=== PATIENT | male | born 1970 | race Caucasian/White ===

== ENCOUNTER 2017-02-25 18:10 | Emergency (ER) | payer OTHER ==
[~2017-02-25] VITALS: Ht 182.9 cm; Wt 68.2 kg
[2017-02-25 18:13] VITALS: BP 124/77; PULSE 63; RESP 14; TEMP 99.4; O2SAT 100
--- NOTE | 2017-02-25 18:30 | PD ---
Physical Exam Date Seen by Provider: Feb 25, 2017 Time Seen by Provider: 18:27 Narrative 46-year-old male presents to emergency department with sudden onset right sided elbow swelling that he woke up with this morning. He denies any significant pain. Patient states the only thing it differently yesterday was 3 sets of one arm to pull ups. No history of this in the past. It is not hot or red. No fever or chills. No known drug allergies. Data Data Last Documented VS Vital Signs Date Time Temp Pulse Resp B/P (MAP) Pulse Ox O2 Delivery O2 Flow Rate FiO2 02/25/17 18:13 99.4 63 14 124/77 (93) 100 MDM Medical Record Reviewed: Yes Supervised Visit with LEN: Yes Narrative Course Patient is medically stable. Vital signs are stable. X-ray of the right elbow is ordered. Patient is awaiting bed placement. Condition: Stable Noé Bob Feb 25, 2017 18:30
--- NOTE | 2017-02-25 18:52 | RADRPT ---
EXAM DATE/TIME: 02/25/2017 18:39 [place] COMPARISON: No previous studies available for comparison. INDICATIONS : Right elbow swelling, no known injury. MEDICAL HISTORY : None. SURGICAL HISTORY : None. ENCOUNTER: Initial ACUITY: 1 day PAIN SCORE: 0/10 LOCATION: Right elbow FINDINGS: Multiple view examination of the right elbow demonstrates no joint effusion, or fracture. The osseou s structures are in normal alignment. Bony mineralization is normal. Soft tissue swelling is noted o verlying the posterior elbow particularly overlying the olecranon. CONCLUSION: Soft tissue swelling overlying the olecranon. Otherwise negative. Lauro Snyder MD on February 25, 2017 at 18:48 Board Certified Radiologist. This report was verified electronically.
[2017-02-25] MEDS ORDERED: INDO50CA PO (19:38)
--- NOTE | 2017-02-25 19:38 | PD ---
HPI Chief Complaint: Musculoskeletal Complaint Time Seen by Provider: 19:31 Travel History International Travel<30 days: No Contact w/Intl Traveler<30days: No Traveled to known affect area: No History of Present Illness HPI Patient is a 46-year-old male presenting to emergency for evaluation of right elbow edema. Patient denies any injury or trauma, he denies any bites or stings. He further denies any fever or chills. Patient states he woke up like that this morning. He does report doing one arm pull ups yesterday with that arm. He denies a history of the same. He further denies any IV drug use. [facility] Past Medical History Medical History: Denies Significant Hx Tetanus Vaccination: < 5 Years Influenza Vaccination: No Past Surgical History Other Surgery: Yes (VASECTOMEY) Social History Alcohol Use: Yes (WEEKLY) Tobacco Use: No Substance Use: No Allergies-Medications (Allergen,Severity, Reaction): Coded Allergies: No Known Allergies (Unverified , 02/25/17) Review of Systems Except as stated in HPI: all other systems reviewed are Neg Musculoskeletal: Positive: Edema Skin: No Change in Pigmentation, No Lesions Physical Exam Narrative GENERAL: Well-developed, well-nourished, alert male. Resting comfortably in no acute distress. SKIN: Warm and dry. No rash or obvious lesions HEAD: Normocephalic. EYES: No scleral icterus. No injection or drainage. NECK: Supple, trachea midline. No JVD or lymphadenopathy. CARDIOVASCULAR: Regular rate and rhythm without murmurs, gallops, or rubs. RESPIRATORY: Breath sounds equal bilaterally. No accessory muscle use. GASTROINTESTINAL: Abdomen soft, non-tender, nondistended. MUSCULOSKELETAL: No cyanosis, edema to the right old cranial process. No erythema, warmth, induration noted. Full range of motion in right elbow, 2+ radial pulse, brisk is a 3 second capillary refill. 5 out of 5 food tray assembler strength bilaterally. BACK: Nontender without obvious deformity. No CVA tenderness. Data Data Last Documented VS Vital Signs Date Time Temp Pulse Resp B/P (MAP) Pulse Ox O2 Delivery O2 Flow Rate FiO2 02/25/17 18:27 (93) 02/25/17 18:13 99.4 63 14 100 Orders Orders Elbow, Complete (4 Vws) (02/25/17 18:30) Jovanny Bandage (02/25/17 19:32) Ed Discharge Order (02/25/17 19:32) [facility] Medical Decision Making Medical Screen Exam Complete: Yes Emergency Medical Condition: Yes Interpretation(s) Vital Signs Date Time Temp Pulse Resp B/P (MAP) Pulse Ox O2 Delivery O2 Flow Rate FiO2 02/25/17 18:27 (93) 02/25/17 18:13 99.4 63 14 124/77 (93) 100 Differential Diagnosis Septic arthritis versus bursitis versus cellulitis versus other Narrative Course Patient is a 46-year-old male that presented to emergency Department with 1 day of right elbow edema. Imaging was ordered while patient was in triage. Imaging is negative for acute fracture. There is soft tissue swelling over the right all the cranium process, this is consistent with physical examination. Patient will be placed in an Jovanny wrap and given a prescription for indomethacin. Patient was advised that compression will help alleviate edema. He was encouraged to follow-up with her primary doctor. He was encouraged return to emergency department for any new or worsening symptoms. Patient was educated on the signs and symptoms of infection and verbalized understanding of instructions. Patient is stable for discharge. Diagnosis Primary Impression: Bursitis Qualified Codes: M70.21 - Olecranon bursitis, right elbow Referrals: Primary Care Physician 1 week Patient Instructions: Elbow Bursitis (ED), General Instructions Additional Instructions: Use Jovanny wrap for compression to help alleviate swelling Avoid exacerbating activities Take medications as needed and as directed Follow-up with your primary doctor Return to emergency department for any new or worsening symptoms Med/Other Pt SpecificInfo: Prescription(s) given Scripts Indomethacin (Indomethacin) 50 Mg Cap 50 MG PO TID Y for PAIN SCALE 1 TO 10, #30 CAP 0 Refills Take with food, milk, or antacids to decrease stomach adverse effects. Prov: Concha Elam 02/25/17 Disposition: 01 DISCHARGE HOME Condition: Stable Concha Elam Feb 25, 2017 19:38
== END 2017-02-25 19:53 | disposition home or self-care (01) ==
LOC: NEPK 18:10
DX: M70.21 Olecranon bursitis, right elbow (principal); Y93.B2 Activity, push-ups, pull-ups, sit-ups
CPT/HCPCS: 73080; 99283